=== PATIENT | female | born 1945 | race Caucasian/White ===

== ENCOUNTER → 2018-01-31 10:58 | Outpatient (CLI) | payer MEDICARE, OTHER, SELFPAY ==
[2018-01-31 11:46] LABS: Blood Urea Nitrogen 19 mg/dL (7-17); Calcium 9.2 mg/dL (8.4-10.2); Carbon Dioxide 27 mmol/L (22-32); Chloride 104 mmol/L (98-107); Estimated Glomerular Filt Rate > 60.0 mL/min (>60); Glucose 89 mg/dL (80-110); HEMOLYSIS 45 (0-50); Potassium 4.8 mmol/L (3.4-5.1); Sodium 143 mmol/L (137-145)
== END ==
PROVIDERS: PCP Internal Medicine; Visit Provider Internal Medicine
DX: Z00.00 Encounter for general adult medical examination without abnormal findings (principal)
CPT/HCPCS: 36415; 80048

== ENCOUNTER 2018-05-19 07:24 | Day surgery (SDC) | payer MEDICARE, OTHER, SELFPAY ==
[2018-05-19 07:45] VITALS: BMI 22.1
[2018-05-19 07:51] VITALS: BP 154/91; PULSE 83; RESP 15; TEMP 36.2; O2SAT 99
[2018-05-19] MEDS: SODIUM CHLORIDE 0.9% 1,000 ML 84 ML IV (08:00)
--- NOTE | 2018-05-19 09:06 | PM.HP.1 ---
History of Present Illness Date Patient Seen: 05/19/18 Time Patient Seen: 09:09 Chief complaint: 18030 Narrative: Radha 73-year-old lady with a family history of colon cancer in 2 second-degree relatives. She also has a personal history of colon polyps. Her last colonoscopy was in 2013 and it was at this facility. At that time she had a single benign tubular adenoma removed. She denies any new problems or symptoms related to the function of her GI tract. Patient History Social History household members: spouse Family & Social History Social History: household members spouse Meds Home Medications Medication Instructions Recorded Confirmed Type Restasis 2 drp EYE-BOTH DAILY #0 07/26/10 05/19/18 History estradiol [Vagifem] 10 mcg VAGINAL 2XW #0 07/26/10 05/19/18 History mirabegron [Myrbetriq] 50 mg PO DAILY 05/19/18 05/19/18 History Allergies Allergy/AdvReac Type Severity Reaction Status Date / Time No Known Drug Allergies Allergy Verified 05/19/18 07:39 Review of Systems Review of Systems All systems reviewed & are unremarkable except as noted in HPI and below Exam Vital Signs (past 8 hours): - 05/19/18 07:51 Temperature 97.1 F L Pulse Rate 83 Respiratory Rate 15 Blood Pressure 154/91 H Pulse Oximetry 99 Oxygen Delivery Method Room Air Narrative Exam Narrative: Radha 73-year-old lady in no distress HEENT: Normocephalic and atraumatic, pupils equal round reactive to light accommodation with anicteric sclera Lungs: Clear to auscultation bilaterally Heart: Regular rate and rhythm without murmur rub or gallop Abdomen: Soft, nontender, active bowel sounds Extremities: Warm and well perfused Assessment & Plan Assessment & Plan narrative: Radha 73-year-old lady with a personal history of colon polyps and family history of colon cancer. We discussed the risks and benefits of colonoscopy the patient expressed desire to have the procedure.
[2018-05-19] MEDS: fentaNYL 250 MCG/5 ML INJ IV (09:27)
[2018-05-19] MEDS: MIDAZOLAM 5 MG/5 ML VIAL IV (09:28)
--- NOTE | 2018-05-19 09:35 | PM.OP.1 ---
Operative Date/Time/Diagnoses Date of procedure: 05/19/18 Time of procedure: 09:35 Pre-op diagnosis: Personal history of colon polyps Family history of colon cancer Post-op diagnosis: same Procedure & Clinicians Procedure: Colonoscopy to the cecum Same procedure as scheduled: Yes Indications: Last colonoscopy 2013 Surgeon: Ivana Ngo Anesthesia Type: Sedation (Versed 6 mg; fentanyl 175 mcg) Operative Notes Findings: 1. Adequate prep 2. Tortuous sigmoid and transverse colons 3. Very minimal diverticulosis limited to the sigmoid region 4. No polyps or mass lesions and no AV malformations 5. Grade 1 internal hemorrhoids Closure Type: not applicable Specimen(s): none sent Procedure in detail: After obtaining informed consent, the patient was brought to the GI suite and placed in the left lateral decubitus position on the examination table. After placement of appropriate monitors, the patient was given incremental doses of Versed and Fentanyl until an appropriate level of sedation was achieved. A time out was held per [facility] protocol. A digital rectal examination was performed and did not reveal any masses or obstructing lesions. The colonoscope was gently passed into the patient's anus and the entire colon navigated to the level of the cecum with mild difficulty due to colon tortuosity. Once in the cecum, the scope was withdrawn being sure to go before and beyond all mucosal folds and prominences and get an excellent examination. The findings are noted above. At the level of the rectal vault, the scope was retroflexed and the internal anal canal was examined. The scope was straightened and air aspirated from the colon. The instrument was removed from the patient's body and the procedure was concluded. Total sedation time 28 min Total withdrawal time 10 min The patient was allowed to awaken from sedation without difficulty and taken to the post-anesthesia care unit in good condition. Complications: none Condition: stable Disposition: PACU Plan for aftercare: 1. Discharge to home 2. Plan for next colonoscopy in 5 years due to the patient's history
[2018-05-19 09:38] VITALS: BP 93/56; PULSE 68; RESP 12; TEMP 36; O2SAT 94
[2018-05-19 09:43] VITALS: BP 93/52; PULSE 66; RESP 10; O2SAT 96
[2018-05-19 09:48] VITALS: BP 105/64; PULSE 68; RESP 12; O2SAT 100
[2018-05-19 09:53] VITALS: BP 108/66; PULSE 63; RESP 14; O2SAT 100
[2018-05-19 10:00] VITALS: BP 110/62; PULSE 63; RESP 14; TEMP 36.6; O2SAT 100
== END 2018-05-19 10:45 | disposition home or self-care (01) ==
PROVIDERS: Family Provider Internal Medicine; PCP Internal Medicine; Visit Provider Surgery
PROC: 0DJD8ZZ Inspection of Lower Intestinal Tract, Via Natural or Artificial Opening Endoscopic (ICD-10-PCS; CPT 45378; principal; 2018-05-19 08:45)
DX: Z86.010 Personal history of colon polyps (principal); Z80.0 Family history of malignant neoplasm of digestive organs; K57.30 Diverticulosis of large intestine without perforation or abscess without bleeding; K64.0 First degree hemorrhoids
CPT/HCPCS: G0105; 99152; 99153; J2250; J3010

== ENCOUNTER → 2019-08-11 07:35 | Outpatient (CLI) | payer MEDICARE, OTHER, SELFPAY ==
[2019-08-11 09:06] LABS: Cholesterol 207 mg/dL (140-199); HDL Cholesterol 72 mg/dL (40-60); LDL Cholesterol Calculated 126 mg/dL (<100); Triglycerides 45 mg/dL (35-150)
== END ==
PROVIDERS: Family Provider Internal Medicine; PCP Internal Medicine; Referring Provider Internal Medicine; Visit Provider Internal Medicine
DX: E78.5 Hyperlipidemia, unspecified (principal)
CPT/HCPCS: 36415; 80061